=== PATIENT | female | born 1945 | race Caucasian/White ===

== ENCOUNTER 2022-07-01 13:30 | Outpatient (CLI) | payer MEDICARE, OTHER ==
--- NOTE | 2022-07-01 16:19 | XRAY Report ---
PROCEDURE: Hand 3 View LT INDICATIONS: left finger pain TECHNIQUE: 4 views of the hand(s) acquired. COMPARISON: None FINDINGS: Bones: There is acute-appearing fracture involving dorsal aspect of fifth distal phalangeal base with proximal lead displaced fractured fragment dorsal to the fifth middle phalangeal neck. Mild osteoart hritic changes are noted throughout left hand and wrist joints. No gross bony erosive changes. No tahmina picious bony lesions. Soft tissues: No suspicious soft tissue calcifications. IMPRESSION: Suggestion of acute avulsion injury involving dorsal aspect of fifth distal phalangeal base as above. Reviewed by: Chay Cortes MD on 07/01/2022 4:18 PM PST Approved by: Chay Cortes MD on 07/01/2022 4:18 PM PST Station ID: [id number]
== END 2022-07-01 13:31 | disposition home or self-care (01) ==
LOC: DI 13:30
PROVIDERS: ATTEND Student in an Organized Health Care Education/Training Program
DX: M79.645 Pain in left finger(s) (principal)